=== PATIENT | male | born 1945 | race Caucasian/White ===

== ENCOUNTER → 2018-07-26 19:43 | Outpatient (REF) | payer MEDICARE, SELFPAY ==
[2018-07-26 20:31] LABS: Add Manual Diff / Slide Review NO; Basophils Absolute Auto 100 /uL (0-100); Basophils Percent Auto 1.4 % (0-2); Eosinophils Absolute Auto 100 /uL (0-450); Eosinophils Percent Auto 2.4 % (2-4); Hematocrit 41.2 % (41-53); Hemoglobin 13.5 g/dL (13.5-17.5); Lymphocytes Absolute Auto 1500 /uL (1100-4500); Lymphocytes Percent Auto 29.3 % (25-40); Mean Corpuscular HGB Conc 32.7 % (30-36); Mean Corpuscular Hemoglobin 30.2 PG (26-34); Mean Corpuscular Volume 92.1 fL (80-100); Monocytes Absolute Auto 400 /uL (0-900); Monocytes Percent Auto 9.1 % (3-14); Neutrophils Absolute Auto 2900 /uL (1500-7000); Neutrophils Percent Auto 57.8 % (50-75); Platelet Count 273 X10^3/uL (150-400); Red Blood Cell Count 4.48 X10^6/uL (4.5-5.9)
[2018-07-26 20:50] LABS: Hemoglobin A1C% w Est Avg Glu 5.6 % (4.0-6.0)
[2018-07-26 21:12] LABS: Thyroid Stimulating Hormone 2.52 uIU/mL (0.47-4.68)
[2018-07-26 22:06] LABS: Alanine Aminotransferase 32 IU/L (21-72); Albumin Globulin Ratio 1.6 (1.0-2.8); Alkaline Phosphatase 56 U/L (38-126); Aspartate Aminotransferase 21 IU/L (17-59); BUN Creatinine Ratio 21.1 (6-22); Bilirubin Total 0.4 mg/dL (0.2-1.3); Blood Urea Nitrogen 19 mg/dL (9-20); Calcium 9.2 mg/dL (8.4-10.2); Carbon Dioxide 28 mmol/L (22-32); Chloride 102 mmol/L (98-107); Cholesterol 162 mg/dL (140-199); Estimated Glomerular Filt Rate > 60.0 mL/min (>60); Globulin 2.5 g/dL (1.7-4.1); Glucose 106 mg/dL (80-110); HDL Cholesterol 46 mg/dL (40-60); HEMOLYSIS < 15 (0-50); LDL Cholesterol Calculated 93 mg/dL (<100); Potassium 4.5 mmol/L (3.4-5.1); Sodium 139 mmol/L (137-145); Total Protein 6.5 g/dL (6.3-8.2); Triglycerides 116 mg/dL (35-150)
[2018-07-26 22:35] LABS: Prostate Specific Antigen 0.626 ng/mL (0.10-4.00)
[2018-07-26 22:53] LABS: Vitamin B12 734 pg/mL (239-931)
== END ==
LOC: LAB 19:43
PROVIDERS: PCP Family Medicine Geriatric Medicine; Visit Provider Family Medicine Geriatric Medicine
DX: E78.5 Hyperlipidemia, unspecified (principal); R73.01 Impaired fasting glucose; Z13.29 Encounter for screening for other suspected endocrine disorder; I10 Essential (primary) hypertension
CPT/HCPCS: 36415; 80053; 80061; 82607; 83036; 84153; 84443; 85025

== ENCOUNTER 2023-01-13 07:24 | Day surgery (SDC) | payer MEDICARE, SELFPAY ==
--- NOTE | 2023-01-12 07:22 | PM.PREOP ---
Pre-operative Note COVID-19 COVID-19 status: Not tested Criteria for continued procedure: Expected advancement of disease process, Possibility delay results in more complex future surgery or treatment, Increased loss of function and Continuing or worsening of significant or severe pain Interval Note History & Physical reviewed/Exam performed by Physician: Yes Changes to H&P: No H&P completed within 30 days and has changed as indicated here:: Patient was placed on carbidopa to see if it helped his tremors. He does not feel that has given him any relief. Treatment was started in December
--- NOTE | 2023-01-12 07:23 | P.OP_ITS ---
Operative Date/Time/Diagnoses Date of procedure: 01/13/23 Time of procedure: 09:00 Procedure & Clinicians Procedure: Preoperative diagnosis: 1. 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 Hypertension 6. Disorder of the prostate 7. Glaucoma Postoperative diagnosis: Status post right entropion and left ectropion repair with horizontal lid shortening and punctal surgery. Surgery of the right lower lid retractors 3. Anesthesia local with monitored standby. 4. Blood loss: Less than 3 cc 5. Specimen: None Operative summary: Patient presents with excessive irritation and tearing from exposure due to bilateral lower lid laxity malposition the of the lacrimal puncta which were also closed. The patient has failed conservative measures including lubrication and antibiotic ointment and desires surgery to improve these symptoms. The patient is taken to the operating room and positioned. Monitoring is performed. Local anesthetic consisting of 2% xylocaine with epinephrine mixed half and half with 0.5% Marcaine with 1 cc of hyulronidase for pain relief and hemostasis through the lower lid and punctum. Good anesthesia was obtained. External photographs are referred to guide surgery. Right eye procedure: Complex entropion repair. Attention was placed to the right lower lid. A punctal dilator was used to enlarge the punctum. It was then probed to the nose. Tenotomy scissors were used to make a 3 snip procedure to enlarge the punctum permanently. . Attention was placed to the lateral canthus. The right lower lid has a severe spastic entropion with previous treatments. A 15. Myagi-Misael blade was used to make an incision for 1 cm. A 2nd subciliary incision was made starting 4 mm temporal to the punctum and extending to the lateral canthus. Blunt dissection was used to expose the inferior lid retractors. There was extensive scar tissue and blunt dissection was also used to free tissue to the orbital septum. The lower lid retractors were freed as much as possible. These were then identified and #6 vicryl multiple sutures were placed through it to rotate the lid out. A 1 cm incision was placed through the lateral canthus to create a lateral canthotomy. The periosteum was exposed. Cautery was used as needed. The inferior canthal tendon was lysed with scissors. A tarsal strip was formed with clearance of the anterior and posterior lamella and any exposed lashes. Minimal shortening was performed. The strip was then transected with 4.0 Mersilene type suture which was placed double-armed through the periosteum and tied with multiple knots at the orbital rim. This suture was buried. The outer tarsus and lower lid lid was then closed with 6 0 interrupted and running sutures. Maxitrol ointment was placed at the end of the procedure. Left eye entropion repair: The procedure on the left side was for lateral lid laxity from ectropion. Therefore, attention was placed to the lateral canthus. A 1 cm incision was made with a 15. Secure FortressMisael blade. The inferior canthal tendon was lysed. Additional anesthetic was placed as needed. A tarsal strip was performed with removal of the anterior and posterior lamella. Minimal shortening was performed. A 4. 0 Mersilene was used double arms through the periosteum with multiple knots to the orbital rim with good positioning. The suture was buried. The lateral canthus was reconstructed with 6.0 Vicryl suture. Interrupted and running 6 0 Vicryl was used to close the rest of the incision. There was minimal bleeding. The patient returned to the recovery room in good condition. Sutures will be removed in the office in approximately 10 days. Did receive propofol during the procedure and was sent to recovery room and monitored until stable prior to discharge. Same procedure as scheduled: Yes
[2023-01-13] VITALS (8 sets, daily range): BP systolic 110–153; BP diastolic 60–73; PULSE 56–71; RESP 9–17; TEMP 36.1–36.5; O2SAT 94–98; BMI 23.6
[2023-01-13] MEDS: LACTATED RINGERS 1,000 ML 42 ML IV ×2 (08:34→10:05)
[2023-01-13] MEDS: PROPARACAINE 0.5% OPHTH SOL 2 DROPS EYE-BOTH (10:00)
--- NOTE | 2023-01-13 10:41 | SUR.OPER ---
Supine on eye stretcher, head on extension cradle and foam donut. Arms tucked at sides. 2 Pillow under knees. Safety belt at lower torso.
[2023-01-13] MEDS: LIDOCAINE 2% W/EPI 3 ML, BUPIVACAINE 0.5% (PF) 2 ML, HYALURONIDASE 150 UNIT INJ (10:48)
[2023-01-13] MEDS: NEO/POLYMIX B/DEX OPHTH SUSP 1 DROPS EYE-BOTH (10:53)
[2023-01-13] MEDS: OXYCODONE 5 MG/5 ML ORAL SOLUTION PO (12:13)
--- NOTE | 2023-01-13 12:51 | SUR.PHASEII ---
Called Thu Mendosa CRNA. Informed of patient with continued discomfort. See new order for Tylenol.
[2023-01-13] MEDS: ACETAMINOPHEN 325 MG TABLET 650 MG PO (13:14)
== END 2023-01-13 13:22 | disposition home or self-care (01) ==
PROVIDERS: PCP Family Medicine Geriatric Medicine; Referring Provider Ophthalmology; Visit Provider Ophthalmology
PROC: (CPT 67917; principal; 2023-01-13 08:45)
DX: H02.045 Spastic entropion of left lower eyelid (principal); H02.042 Spastic entropion of right lower eyelid; H02.105 Unspecified ectropion of left lower eyelid; H04.551 Acquired stenosis of right nasolacrimal duct
CPT/HCPCS: 67917; 67924; J2704; J3470

== ENCOUNTER → 2023-05-07 12:05 | Outpatient (CLI) | payer MEDICARE, SELFPAY ==
--- NOTE | 2023-05-07 12:30 | DI.CT.S_ITS ---
PROCEDURE: CT HEAD/BRAIN WO CON INDICATIONS: Essential tremor TECHNIQUE: Noncontrast 4.5 mm thick angled axial sections acquired from the foramen magnum to the vertex, with coronal and sagittal reformats. For radiation dose reduction, the following was used: automated exposure control, adjustment of mA and/or kV according to patient size. COMPARISON: None. FINDINGS: Image quality: Mild streak artifact can be seen through the skull base. CSF spaces: Basal cisterns are patent. No extra-axial fluid collections. The ventricles are symmetric in size and shape. Brain: No intracranial bleeds or masses. There is cerebral volume loss for age, with resultant ventricular and sulcal prominence. There are periventricular and deep white matter chronic small vessel ischemic changes. There is intracranial internal carotid artery atherosclerosis. Skull and face: Calvarium and visualized facial bones appear intact, without suspicious lesions. Sinuses: Visualized sinuses and mastoids are clear. IMPRESSION: Noncontrast head CT within normal limits for age. Dictated by: Heath Morales M.D. on 05/07/2023 at 16:57 Approved by: Heath Morales M.D. on 05/07/2023 at 16:58
== END ==
PROVIDERS: PCP Student in an Organized Health Care Education/Training Program; Referring Provider Neurological Surgery; Visit Provider Neurological Surgery
DX: I65.29 Occlusion and stenosis of unspecified carotid artery (principal); Z01.818 Encounter for other preprocedural examination; G25.0 Essential tremor
CPT/HCPCS: 70450